=== PATIENT | female | born 1990 | race Caucasian/White ===

== ENCOUNTER 2016-06-30 06:58 | Emergency (ER) | payer MEDICAID, OTHER ==
[~2016-06-30] VITALS: Ht 157.5 cm; Wt 62.0 kg
[~2016-06-30 06:58] MED LIST: ACET1TAB40 PO; BACTDS PO; ZOF8 PO
[2016-06-30 07:03] VITALS: Ht 157.5 cm; Wt 62.0 kg
[2016-06-30] MEDS ORDERED: KETOROLAC 30 MG INJ IM STA (07:30)
--- NOTE | 2016-06-30 07:39 | ERD ---
ER Documentation Chief Complaint Date/Time DATE: 06/30/16 TIME: 07:36 Chief Complaint pt bib self with c/o right sided flank pain starting this am HPI This is a 26-year-old female presenting to emergency department for right-sided flank pain 1 day. Patient states symptoms started this morning when she woke up and started having pain to right side. Patient tried going back to sleep but was unable to do so due to pain. Patient states pain is worse with certain movements and is not relieved by anything. Patient has had this pain before however is unsure of what the cause was. No fevers or chills. No dysuria or hematuria. No difficulty urinating. Last menstrual period 06/01/2016. Has not tried anything for pain. Patient states she feels nauseous however no vomiting. No diarrhea or abdominal pain. Denies pelvic pain. ROS All systems reviewed and are negative except as per history of present illness. Medications Home Meds Active Scripts Tamsulosin Hcl* (Flomax*) 0.4 Mg Cap.er.24h, 0.4 MG PO BID, #7 CAP Prov:ENZO LOO NP 06/30/16 Hydrocodone/Acetaminophen ([place] 5-325 Tablet) 1 Each Tablet, 1 TAB PO Q6H Y for PAIN, #15 TAB Prov:ENZO LOO NP 06/30/16 Ibuprofen* (Motrin*) 400 Mg Tab, 400 MG PO Q6, #15 TAB Prov:ENZO LOO NP 06/30/16 Nitrofurantoin Monohyd Macrocr* (Macrobid*) 100 Mg Capsr, 100 MG PO BID for 5 Days, CAP Prov:ENZO LOO NP 06/30/16 Ondansetron Hcl* (Zofran* ODT) 8 mg -ODT Tab.disper, 8 MG PO Q6 Y for NAUSEA AND /OR VOMITING, #10 TAB Prov:YUDY GEORGE MD 11/30/14 Acetaminophen-Codeine* (Acetaminophen-Cod #3*) 300-30 Mg Tab, 1 TAB PO Q4H Y for PAIN, #14 TAB Prov:YUDY GEORGE MD 11/30/14 Sulfamethoxazole-Trimethoprim* (Bactrim* DS) 800-160 Mg Tab, 1 TAB PO BID for 7 Days, TAB Prov:YUDY GEORGE MD 11/30/14 Allergies Allergies: Coded Allergies: No Known Allergy (Unverified , 01/30/14) PMhx/Soc Medical and Surgical Hx: pt denies Medical Hx, pt denies Surgical Hx History of Surgery: No Anesthesia Reaction: No Hx Neurological Disorder: No Hx Respiratory Disorders: No Hx Cardiac Disorders: No Hx Psychiatric Problems: No Hx Miscellaneous Medical Probl: No Hx Alcohol Use: No Hx Substance Use: No Hx Tobacco Use: No Smoking Status: Never smoker Physical Exam Vitals Vital Signs Date Time Temp Pulse Resp B/P Pulse Ox O2 Delivery O2 Flow Rate FiO2 06/30/16 07:03 98.3 71 16 142/87 98 Physical Exam Const: Alert, nontoxic-appearing Head: Atraumatic Eyes: Normal Conjunctiva ENT: Normal External Ears, Nose and Mouth. Neck: Full range of motion..~ No meningismus. Resp: Clear to auscultation bilaterally. No wheezing, rhonchi or crackles. Cardio: Regular rate and rhythm, no murmurs Abd: Soft, non tender, non distended. Normal bowel sounds Skin: No petechiae or rashes Back: No midline tenderness. No CVA tenderness. Ext: No cyanosis, or edema Neur: Awake and alert Psych: Normal Mood and Affect Result Diagram: 06/30/16 1010 06/30/16 1010 Results 24 hrs Laboratory Tests Test 06/30/16 07:51 06/30/16 10:10 Bedside Urine Blood 2+ Bedside Urine Glucose (UA) Negative Bedside Urine Ketones (LAB) Negative Bedside Urine Leukocyte Esterase (L Trace Bedside Urine Nitrite (LAB) Negative Bedside Urine Protein (LAB) Trace Bedside Urine pH (LAB) 6.5 Alanine Aminotransferase (ALT/SGPT) 30IU/L Albumin 4.4g/dl Albumin/Globulin Ratio 1.69 Alkaline Phosphatase 86IU/L Anion Gap 18 Aspartate Amino Transf (AST/SGOT) 19IU/L Basophils # 0.010^3/ul Basophils % 0.4% Blood Urea Nitrogen 10mg/dl Calcium Level 9.6mg/dl Carbon Dioxide Level 28mmol/L Chloride Level 104mmol/L Creatinine 0.64mg/dl Direct Bilirubin 0.00mg/dl Eosinophils # 0.110^3/ul Eosinophils % 0.5% Globulin 2.60g/dl Glucose Level 100mg/dl Hematocrit 38.3% Hemoglobin 12.3g/dl Indirect Bilirubin 0.3mg/dl Lymphocytes # 0.910^3/ul Lymphocytes % 8.9% Mean Corpuscular Hemoglobin 27.8pg Mean Corpuscular Hemoglobin Concent 32.1g/dl Mean Corpuscular Volume 86.7fl Mean Platelet Volume 10.2fl Monocytes # 0.510^3/ul Monocytes % 5.0% Neutrophils # 8.610^3/ul Neutrophils % 84.9% Nucleated Red Blood Cells # 0.010^3/ul Nucleated Red Blood Cells % 0.0/100WBC Platelet Count 66247^3/UL Potassium Level 4.0mmol/L Red Blood Count 4.4210^6/ul Red Cell Distribution Width 12.2% Sodium Level 146mmol/L Total Bilirubin 0.3mg/dl Total Protein 7.0g/dl White Blood Count 10.110^3/ul Current Medications Medications (Trade) Dose Ordered Sig/Blanca Route PRN Reason Start Time Stop Time Status Last Admin Dose Admin Ketorolac Tromethamine (Toradol) 30 mg ONCE STAT IM 06/30/16 07:30 06/30/16 07:31 DC 06/30/16 07:53 Ondansetron HCl 4 mg 4 mg ONCE STAT ODT 06/30/16 07:42 06/30/16 07:43 DC 06/30/16 07:55 Sodium Chloride (NS) 1,000 ml @ 1,000 mls/hr Q1H ONCE IV 06/30/16 10:00 06/30/16 10:59 DC 06/30/16 10:08 Procedures/MDM ED COURSE: The patient was stable throughout ED course. I kept the patient and/or family informed of laboratory and diagnostic imaging results throughout the ED course. Toradol given Laboratory CBC no significant anemia or infection CMP no significant electrolyte imbalance. Normal BUN and creatinine Urine dip trace leukocyte esterase, 2+ blood Urine negative Imaging Ultrasound kidneys Patient: ELIZABETH MILLS : 1990 Age: 26 Sex: F MR #: [id number] DOS: 06/30/16 0730 Ordering MD: ENZO LOO NP Location: [facility] Room/Bed: PROCEDURE: Renal US. CLINICAL INDICATION: Right flank pain TECHNIQUE: Multiple sonographic images of the kidneys were obtained. The images were reviewed on a PACS workstation. COMPARISON: No prior studies are available for comparison. FINDINGS: The kidneys are well visualized. The right kidney measures 10.3 x 5.6 x 5.3 cm. The left kidney measures 10.1 x 6 x 4.8 cm. Mild right hydronephrosis is seen. There are no focal areas of abnormal echogenicity. There is no evidence for left obstructive uropathy. The visualized urinary bladder is unremarkable. IMPRESSION: Mild right hydronephrosis. The possibility of a distal obstructing stone cannot be excluded. Consider further evaluation with a CT renal stone protocol as clinically warranted. CT abdomen and pelvis Patient: ELIZABETH MILLS : 1990 Age: 26 Sex: F MR #: [id number] DOS: 06/30/16 0830 Ordering MD: ENZO LOO NP Location: [facility] Room/Bed: PROCEDURE: CT Abdomen and Pelvis without contrast. CLINICAL INDICATION: Hematuria, right sided flank pain. TECHNIQUE: CT scan of the abdomen and pelvis without contrast was performed on a multidetector high-resolution CT scanner. The patient was scanned without intravenous contrast. Coronal and sagittal reformatted images were obtained from the axial source images. Images were reviewed on a high-resolution PACS workstation. One or more of the following dose reduction techniques were used: Automated exposure control, adjustment of the mA and/or kV according to patient size, use of iterative reconstruction technique. The total exam CTDI equals 4.49 mGy and the total exam DLP equals 224.72 mGy-cm. COMPARISON: Correlation with ultrasound from the same day. FINDINGS: CT abdomen: The lung bases are clear. The heart size is normal, without pericardial thickening or effusion. The liver is normal in size and density without focal mass or intrahepatic biliary dilatation. The spleen is normal in size and homogeneous in density. The stomach is grossly unremarkable. The pancreas as visualized is normal. The gallbladder and biliary tree are unremarkable and there is no evidence for biliary dilatation. The adrenal glands are symmetric and normal. A 5 x 3 x 3 mm obstructive calculus is present in the proximal right ureter resulting in mild right-sided hydronephrosis. Minimal right perinephric and periureteral fat stranding is likely reactive. A 2 mm nonobstructive calculus is present at the inferior pole of the right kidney and 3 mm and 2 mm nonobstructive calculi are present at the inferior pole of the left kidney. The aorta is of normal caliber. There is no retroperitoneal lymphadenopathy. The leonard hepatis region is clear. The small bowel and mesentery, as visualized , are unremarkable. CT pelvis: The small bowel loops situated within the pelvis are unremarkable. The pelvic organs are normal. The pelvic sidewalls and inguinal regions are clear. The sigmoid colon and rectum are unremarkable. The appendix is normal. No mass, lymphadenopathy, or free fluid is seen. No acute inflammation is seen. The surrounding osseous structures are unremarkable. No osteolytic or osteoblastic lesion is detected. IMPRESSION: 1. 5 x 3 x 3 mm obstructive calculus in the proximal right ureter resulting in mild right-sided hydronephrosis. Minimal right perinephric fat stranding is likely reactive. 2. Additional small bilateral nonobstructive renal calculi as above. MDM: 26-year-old female presents emergency department for right-sided flank pain starting this morning. Patient states she has had this pain before but is unsure of the cause. No fevers or chills. No recent cough or colds. Patient rating pain 10/10 and was given dose of Toradol on the ED. patient states pain has reduced to 5/10 and is improving. Ultrasound kidneys reviewed by radiologist as mild right hydronephrosis. The possibility of a distal obstructing stone cannot be excluded. Consider further evaluation with a CT renal stone protocol as clinically warranted. CT abdomen and pelvis was ordered. CT abdomen pelvis reviewed by radiologist as 5 x 3 x 3 mm obstructive calculus in the proximal right ureter resulting in mild right-sided hydronephrosis. Minimal right perinephric fat stranding is likely reactive. Additional small bilateral nonobstructive renal calculi as above. Labs were ordered CBC and CMP are normal. Urine shows trace leukocyte esterase and 2+ blood. Normal BUN and creatinine. Patient given 1 L fluid of normal saline. No fevers or chills. Remains hemodynamically stable. Discussed findings with Dr. Chris. We believe that patient is appropriate for outpatient management and is stable for discharge home. Patient's diagnosis is nephrolithiasis. Low suspicion for pyelonephritis. Patient is appropriate for outpatient management will be given prescription for Macrobid, Flomax, [place] and ibuprofen. Instructed patient to drink plenty of fluids. Follow-up with primary care provider in the next 2-3 days for reassessment and additional management. Return to ED for any high fever, chest pain, difficulty breathing, shortness breath, wheezing, vomiting, diarrhea, abdominal pain or any new or worsening symptoms. Patient verbalizes understanding. All questions answered at discharge. Departure Diagnosis: Primary Impression: Nephrolithiasis Condition: Stable ENZO LOO NP Jun 30, 2016 07:39
[2016-06-30] MEDS ORDERED: ONDANSETRON (ODT) 4 MG TAB ODT STA (07:42)
[2016-06-30 07:49] LABS: URINE BLOOD (Dip) POC 2+ (NEGATIVE)
--- NOTE | 2016-06-30 08:27 | RADRPT ---
PROCEDURE: Renal US. CLINICAL INDICATION: Right flank pain TECHNIQUE: Multiple sonographic images of the kidneys were obtained. The images were reviewed on a PACS workstation. COMPARISON: No prior studies are available for comparison. FINDINGS: The kidneys are well visualized. The right kidney measures 10.3 x 5.6 x 5.3 cm. The left kidney sri ures 10.1 x 6 x 4.8 cm. Mild right hydronephrosis is seen. There are no focal areas of abnormal echo genicity. There is no evidence for left obstructive uropathy. The visualized urinary bladder is unre markable. IMPRESSION: Mild right hydronephrosis. The possibility of a distal obstructing stone cannot be excluded. Consi brandt further evaluation with a CT renal stone protocol as clinically warranted. RPTAT: HPNM Physician Vito Date Time Electronically viewed and signed by Physician Vito on 06/30/2016 08:26 /
--- NOTE | 2016-06-30 09:08 | RADRPT ---
PROCEDURE: CT Abdomen and Pelvis without contrast. CLINICAL INDICATION: Hematuria, right sided flank pain. TECHNIQUE: CT scan of the abdomen and pelvis without contrast was performed on a multidetector hig h-resolution CT scanner. The patient was scanned without intravenous contrast. Coronal and sagittal reformatted images were obtained from the axial source images. Images were reviewed on a high-resol [employer] PACS workstation. One or more of the following dose reduction techniques were used: Automated exposure control, adjustment of the mA and/or kV according to patient size, use of iterative recon struction technique. The total exam CTDI equals 4.49 mGy and the total exam DLP equals 224.72 mGy-c m. COMPARISON: Correlation with ultrasound from the same day. FINDINGS: CT abdomen: The lung bases are clear. The heart size is normal, without pericardial thickening or effusion. The liver is normal in size and density without focal mass or intrahepatic biliary dilatation. The spleen is normal in size and homogeneous in density. The stomach is grossly unremarkable. The panc reas as visualized is normal. The gallbladder and biliary tree are unremarkable and there is no kian dence for biliary dilatation. The adrenal glands are symmetric and normal. A 5 x 3 x 3 mm obstructive calculus is present in the proximal right ureter resulting in mild right- sided hydronephrosis. Minimal right perinephric and periureteral fat stranding is likely reactive. A 2 mm nonobstructive calculus is present at the inferior pole of the right kidney and 3 mm and 2 m m nonobstructive calculi are present at the inferior pole of the left kidney. The aorta is of normal caliber. There is no retroperitoneal lymphadenopathy. The leonard hepatis reg ion is clear. The small bowel and mesentery, as visualized, are unremarkable. CT pelvis: The small bowel loops situated within the pelvis are unremarkable. The pelvic organs are normal. T he pelvic sidewalls and inguinal regions are clear. The sigmoid colon and rectum are unremarkable. The appendix is normal. No mass, lymphadenopathy, or free fluid is seen. No acute inflammation is s een. The surrounding osseous structures are unremarkable. No osteolytic or osteoblastic lesion is detec katarina. IMPRESSION: 1. 5 x 3 x 3 mm obstructive calculus in the proximal right ureter resulting in mild right-sided hyd ronephrosis. Minimal right perinephric fat stranding is likely reactive. 2. Additional small bilateral nonobstructive renal calculi as above. RPTAT: AA .Ezekiel Robbins MD, MD Date Time Electronically viewed and signed by .Ezekiel Robbins MD, MD on 06/30/2016 09:08 .A/
[2016-06-30] MEDS ORDERED: SOD CHLORIDE 0.9% 1,000 ML IV ONE (10:00)
[2016-06-30 10:18] LABS: ADD SCAN DIFF NO
[2016-06-30 10:23] LABS: BASOPHILS % 0.4 % (0.0-2.0); EOSINOPHILS # 0.1 10^3/ul (0.0-0.5); EOSINOPHILS % 0.5 % (0.0-7.0); HEMATOCRIT 38.3 % (37.0-47.0); HEMOGLOBIN 12.3 g/dl (12.0-16.0); LYMPHOCYTES # 0.9 10^3/ul (0.8-2.9); LYMPHOCYTES % 8.9 % (15.0-51.0); MEAN CORPUSCULAR HEMOGLOBIN 27.8 pg (29.0-33.0); MEAN CORPUSCULAR HGB CONC 32.1 g/dl (32.0-37.0); MEAN CORPUSCULAR VOLUME 86.7 fl (82.0-101.0); MEAN PLATELET VOLUME 10.2 fl (7.4-10.4); MONOCYTE # 0.5 10^3/ul (0.3-0.9); NEUTROPHIL # 8.6 10^3/ul (1.6-7.5); NEUTROPHILS % 84.9 % (39.0-77.0); PLATELET COUNT 253 10^3/UL (140-415); RED BLOOD COUNT 4.42 10^6/ul (4.20-5.40); RED CELL DISTRIBUTION WIDTH 12.2 % (11.5-14.5); WHITE BLOOD COUNT 10.1 10^3/ul (4.8-10.8)
[2016-06-30 10:56] LABS: ALBUMIN 4.4 g/dl (3.3-4.9)
[2016-06-30 11:00] LABS: ALBUMIN/GLOBULIN RATIO 1.69; BILIRUBIN,INDIRECT 0.3 mg/dl (0-1.1); BILIRUBIN,TOTAL 0.3 mg/dl (0.2-1.3); CALCIUM 9.6 mg/dl (8.4-10.2); CREATININE 0.64 mg/dl (0.44-1.00)
[2016-06-30] MEDS ORDERED: NITR-58 PO (11:34)
[2016-06-30] MEDS ORDERED: TAMS-14 PO (11:34)
[2016-06-30] MEDS ORDERED: HYDR-906 PO (11:34)
[2016-06-30] MEDS ORDERED: IBUP400T22 PO (11:34)
[2016-06-30 12:09] VITALS: BP 128/68; PULSE 79; RESP 18; TEMP 98.9
== END 2016-06-30 12:10 | disposition home or self-care (01) ==
LOC: FTE 06:58
DX: N20.0 Calculus of kidney (principal)
CPT/HCPCS: 36415; 74176; 76775; 80053; 81003; 85025; 96372; J1885; J7030; Z7502; Z7610